=== PATIENT | female | born 1960 | race Caucasian/White ===

== ENCOUNTER 2018-12-06 17:51 | Emergency (ER) | payer OTHER ==
[~2018-12-06] VITALS: Ht 170.2 cm; Wt 70.3 kg
[2018-12-06] MEDS ORDERED: FLEXERIL PO (18:10)
[2018-12-06 18:32] LABS: ABSOLUTE EOSINOPHILS 0.1 thou/uL (0.0-0.7); ABSOLUTE LYMPHOCYTES 1.2 thou/uL (0.8-5.3); ABSOLUTE MONOCYTES 0.3 thou/uL (0.0-1.2); ABSOLUTE NEUTROPHILS 2.6 thou/uL (1.6-8.1); BASOPHILS 0.6 %; EOSINOPHILS 1.5 %; HEMATOCRIT 34.3 % (37.0-47.0); HEMOGLOBIN 12.1 gm/dL (12.0-15.0); LYMPHOCYTES 28.3 %; MCH 29.6 pg (26.0-34.0); MCHC 35.3 g/dL (28.0-37.0); MPV 6.2 fl. (7.2-11.1); NUCLEATED RBCS 0 /100WBC; PLATELET COUNT* 150 thou/uL (150-400); POLYS 62.6 %; RBC 4.09 mil/uL (4.20-5.00); RDW-CV 13.5 % (10.5-14.5); WBC 4.1 thou/uL (4.0-11.0)
[2018-12-06 18:39] LABS: CALCIUM 8.9 mg/dL (8.5-10.1); CREATININE 0.8 mg/dL (0.6-1.3); POTASSIUM 3.8 mmol/L (3.5-5.1)
[2018-12-06 18:51] LABS: ALBUMIN 3.8 g/dL (3.4-5.0); TOTAL BILIRUBIN 0.7 mg/dL (<0.1-1.0); TOTAL PROTEIN 6.4 g/dL (6.4-8.2)
[2018-12-06 19:08] LABS: URINE BILIRUBIN NEGATIVE (Negative); URINE BLOOD NEGATIVE (Negative); URINE CLARITY CLEAR; URINE COLOR YELLOW; URINE GLUCOSE-RANDOM NEGATIVE (Negative); URINE KETONES NEGATIVE (Negative); URINE LEUKOCYTES-REFLEX NEGATIVE (Negative); URINE NITRITE-REFLEX NEGATIVE (Negative); URINE PROTEIN NEGATIVE (Negative); URINE SPECIFIC GRAVITY <= 1.005 (1.005-1.030); URINE UROBILINOGEN 0.2 E.U./dl (0.2-1.0)
[2018-12-06] MEDS ORDERED: NORCO 5-325 TA1 EAC1 PO (21:01)
[2018-12-06 21:10] VITALS: BP 124/63
== END 2018-12-06 21:10 | disposition home or self-care (01) ==
LOC: M.ERS 17:51
PROVIDERS: Nurse Practitioner Family
DX: R10.30 Lower abdominal pain, unspecified (principal); R10.11 Right upper quadrant pain; M54.5 Low back pain

== ENCOUNTER 2019-08-28 09:27 | Emergency (ER) | payer OTHER ==
[~2019-08-28] VITALS: Ht 170.2 cm; Wt 72.6 kg
[~2019-08-28 09:27] MED LIST: FLEXERIL PO; NORCO 5-325 TA1 EAC1 PO
[2019-08-28] MEDS ORDERED: SUPER THERAVIT1 EACH PO (09:37)
[2019-08-28 10:09] LABS: INFLUENZA A ANTIGEN Negative (Negative); INFLUENZA B ANTIGEN Negative (Negative)
[2019-08-28] MEDS ORDERED: AZITHROMYCIN 2250 MG PO (10:12)
[2019-08-28 10:18] VITALS: BP 131/72
== END 2019-08-28 10:19 | disposition home or self-care (01) ==
LOC: M.ERS 09:27
PROVIDERS: Emergency Medicine
DX: J06.9 Acute upper respiratory infection, unspecified (principal)

== ENCOUNTER 2021-06-25 18:00 | Emergency (ER) | payer OTHER ==
[~2021-06-25] VITALS: Ht 170.2 cm; Wt 72.6 kg
[~2021-06-25 18:00] MED LIST changes: +AZITHROMYCIN 2250 MG PO; +SUPER THERAVIT1 EACH PO
[2021-06-25] MEDS ORDERED: AUGMENTIN 875-1 EACH PO (22:14)
[2021-06-25 22:25] VITALS: BP 149/94
--- NOTE | 2021-06-26 09:20 | EKG ---
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 : 1960 Requested By: Heriberto Tierney Order Number: [id number] MD: Lorenzo Pyle Measurements Intervals [place] Rate: 79 P: 66 GA: 154 QRS: 57 QRSD: 94 T: 32 QT: 383 QTc: 440 Interpretive Statements Sinus rhythm Probable left atrial enlargement Borderline T abnormalities, anterior leads No previous ECG available for comparison Electronically Signed On 06-26-2021 9:19:57 RECYCLE COORDINATOR by Lorenzo Pyle [email or web address] <ELECTRONICALLY SIGNED> By: Lorenzo Pyle MD, [facility] 06/26/21918 07 07 Lorenzo Pyle MD, [facility] /EPI
== END 2021-06-25 22:25 | disposition home or self-care (01) ==
LOC: M.ERS 18:00
DX: J01.90 Acute sinusitis, unspecified (principal); B96.89 Other specified bacterial agents as the cause of diseases classified elsewhere; R07.89 Other chest pain; Z79.899 Other long term (current) drug therapy; Z87.891 Personal history of nicotine dependence

== ENCOUNTER 2021-07-08 09:37 | Emergency (ER) | payer OTHER ==
[~2021-07-08] VITALS: Ht 170.2 cm; Wt 72.6 kg
[~2021-07-08 09:37] MED LIST changes: +AUGMENTIN 875-1 EACH PO
[2021-07-08 10:46] LABS: INFLUENZA A ANTIGEN Negative (Negative); INFLUENZA B ANTIGEN Negative (Negative)
[2021-07-08] MEDS ORDERED: PREDNISONE 20 M20 M1 PO (10:57)
[2021-07-08 11:15] VITALS: BP 145/80
== END 2021-07-08 11:16 | disposition home or self-care (01) ==
LOC: M.ERS 09:37
PROVIDERS: Nurse Practitioner Family
DX: R09.81 Nasal congestion (principal); R09.3 Abnormal sputum; E86.0 Dehydration; Z79.899 Other long term (current) drug therapy; Z87.891 Personal history of nicotine dependence

== ENCOUNTER 2021-07-10 16:26 | Emergency (ER) | payer OTHER ==
[~2021-07-10] VITALS: Ht 170.2 cm; Wt 68.0 kg
[~2021-07-10 16:26] MED LIST changes: +PREDNISONE 20 M20 M1 PO
[2021-07-10 17:39] VITALS: BP 133/72
== END 2021-07-10 17:30 | disposition home or self-care (01) ==
LOC: M.ERS 16:26
DX: J06.9 Acute upper respiratory infection, unspecified (principal); T40.2X5A Adverse effect of other opioids, initial encounter; Z90.89 Acquired absence of other organs; Z98.890 Other specified postprocedural states; Z79.899 Other long term (current) drug therapy; Z87.891 Personal history of nicotine dependence; Y92.89 Other specified places as the place of occurrence of the external cause

== ENCOUNTER 2021-07-20 06:05 | Emergency (ER) | payer OTHER ==
[~2021-07-20] VITALS: Ht 170.2 cm; Wt 68.0 kg
[2021-07-20 07:37] LABS: ABSOLUTE EOSINOPHILS 0.1 thou/uL (0.0-0.7); ABSOLUTE LYMPHOCYTES 0.9 thou/uL (0.8-5.3); ABSOLUTE MONOCYTES 0.3 thou/uL (0.0-1.2); ABSOLUTE NEUTROPHILS 2.3 thou/uL (1.6-8.1); BASOPHILS 0.7 %; EOSINOPHILS 2.1 %; HEMATOCRIT 40.5 % (37.0-47.0); HEMOGLOBIN 14.2 gm/dL (12.0-15.0); LYMPHOCYTES 24.2 %; MCH 29.3 pg (26.0-34.0); MCHC 35.1 g/dL (28.0-37.0); MCV 83.5 fL (80.0-100.0); MONOCYTES 9.7 %; MPV 6.4 fl. (7.2-11.1); NUCLEATED RBCS 0 /100WBC; PLATELET COUNT* 171 thou/uL (150-400); POLYS 63.3 %; RBC 4.85 mil/uL (4.20-5.00); RDW-CV 15.1 % (10.5-14.5); WBC 3.6 thou/uL (4.0-11.0)
[2021-07-20 07:46] LABS: CALCIUM 9.4 mg/dL (8.5-10.1); CREATININE 0.8 mg/dL (0.6-1.3)
[2021-07-20 07:51] LABS: ALBUMIN 4.4 g/dL (3.4-5.0); TOTAL BILIRUBIN 1.1 mg/dL (<0.1-1.0)
[2021-07-20 09:35] VITALS: BP 119/70
== END 2021-07-20 09:35 | disposition home or self-care (01) ==
LOC: M.ERS 06:05
DX: R13.10 Dysphagia, unspecified (principal); R09.81 Nasal congestion; J02.9 Acute pharyngitis, unspecified; J06.9 Acute upper respiratory infection, unspecified; Z90.89 Acquired absence of other organs; Z98.890 Other specified postprocedural states; Z87.891 Personal history of nicotine dependence

== ENCOUNTER 2021-07-23 15:52 | Emergency (ER) | payer OTHER ==
[~2021-07-23] VITALS: Ht 170.2 cm; Wt 63.5 kg
[2021-07-23 16:32] LABS: ABSOLUTE EOSINOPHILS 0.1 thou/uL (0.0-0.7); ABSOLUTE MONOCYTES 0.3 thou/uL (0.0-1.2); ABSOLUTE NEUTROPHILS 2.2 thou/uL (1.6-8.1); BASOPHILS 0.6 %; EOSINOPHILS 1.7 %; HEMATOCRIT 37.9 % (37.0-47.0); HEMOGLOBIN 13.3 gm/dL (12.0-15.0); LYMPHOCYTES 27.8 %; MCH 29.2 pg (26.0-34.0); MCV 83.6 fL (80.0-100.0); MONOCYTES 8.7 %; MPV 6.7 fl. (7.2-11.1); NUCLEATED RBCS 0 /100WBC; PLATELET COUNT* 163 thou/uL (150-400); POLYS 61.2 %; RBC 4.54 mil/uL (4.20-5.00); RDW-CV 15.2 % (10.5-14.5); WBC 3.6 thou/uL (4.0-11.0)
[2021-07-23 16:42] LABS: CALCIUM 9.1 mg/dL (8.5-10.1); CREATININE 0.7 mg/dL (0.6-1.3); POTASSIUM 3.8 mmol/L (3.5-5.1)
[2021-07-23 16:52] LABS: ALBUMIN 4.5 g/dL (3.4-5.0); MAGNESIUM 1.6 mg/dL (1.8-2.4); TOTAL BILIRUBIN 1.6 mg/dL (<0.1-1.0); TOTAL PROTEIN 6.9 g/dL (6.4-8.2)
[2021-07-23 18:08] VITALS: BP 123/72
--- NOTE | 2021-07-24 11:07 | EKG ---
[place] [address] ELECTROCARDIOGRAM REPORT Name: NICO LUBIN [place] Room: [facility]#: [id number] Admission: 07/23/21 Attend Phys: Discharge: Date of : 56 Date of Service: 07/23/21 1557 Report #: [id number] THIS REPORT FOR: //name// [facility] ED Test Date: 2021-07-23 Test Time: 15:57:38 Pat Name: NICO LUBIN Department: Room: Gender: Hot Shot: : 1960 Requested By: Dhiraj Ibrahim Order Number: [id number] MD: Lorenzo Pyle Measurements Intervals [place] Rate: 78 P: 77 OR: 134 QRS: 66 QRSD: 94 T: -24 QT: 366 QTc: 417 Interpretive Statements Sinus rhythm Borderline repolarization abnormality Compared to ECG 06/25/2021 22:08:[address]-T abnormalities have developed Electronically Signed On 07-24-2021 11:06:56 [employer] by Lorenzo Pyle [email or web address] <ELECTRONICALLY SIGNED> By: Lorenzo Pyle MD, [facility] 07/24/21 1106 1557 1557 Lorenzo Pyle MD, [facility] /EPI
== END 2021-07-23 18:10 ==
LOC: M.ERS 15:52
PROVIDERS: Family Medicine
DX: R07.89 Other chest pain (principal); R10.13 Epigastric pain; Z90.89 Acquired absence of other organs; Z98.890 Other specified postprocedural states; Z87.891 Personal history of nicotine dependence

== ENCOUNTER → 2021-07-24 | Outpatient (CLI) | payer OTHER | LOC: M.RAD 10:43 | PROVIDERS: ATTEND Nurse Practitioner Family | DX: R13.10 Dysphagia, unspecified (principal); J01.90 Acute sinusitis, unspecified; Z68.25 Body mass index [BMI] 25.0-25.9, adult ==

== ENCOUNTER 2021-08-02 07:48 | Emergency (ER) | payer OTHER ==
[~2021-08-02] VITALS: Ht 170.2 cm; Wt 64.0 kg
[2021-08-02] MEDS ORDERED: PROTONIX 20 MG20 MG PO (08:00)
[2021-08-02] MEDS ORDERED: DOXYCYCLINE 10100 M2 PO (09:37)
[2021-08-02 09:45] VITALS: BP 111/78
== END 2021-08-02 09:48 | disposition home or self-care (01) ==
LOC: M.ERS 07:48
DX: J32.9 Chronic sinusitis, unspecified (principal); Z87.891 Personal history of nicotine dependence; Z98.890 Other specified postprocedural states

== ENCOUNTER → 2021-08-06 | Outpatient (CLI) | payer OTHER ==
[~2021-08-06] MED LIST changes: +DOXYCYCLINE 10100 M2 PO; +PROTONIX 20 MG20 MG PO
== END ==
LOC: M.RAD 09:46
DX: R13.10 Dysphagia, unspecified (principal)